=== PATIENT | female | born 1990 | race Two or more races ===

== ENCOUNTER 2023-12-20 13:10 | Emergency (ER) | payer MEDICAID ==
[~2023-12-20] VITALS: Ht 154.9 cm; Wt 83.4 kg
[2023-12-20 14:53] VITALS: BP 130/68; PULSE 100; RESP 18; TEMP 98.9; O2SAT 96
[2023-12-20] MEDS: LORazepam 0.5 MG TAB PO ONE (14:59)
[2023-12-20] MEDS ORDERED: HYDR50TA69 PO (15:22)
== END 2023-12-20 16:17 | disposition home or self-care (01) ==
LOC: ER 13:10
DX: F41.1 Generalized anxiety disorder (principal); G44.209 Tension-type headache, unspecified, not intractable
CPT/HCPCS: 70450